=== PATIENT | female | born 1975 | race Caucasian/White ===

== ENCOUNTER 2019-06-26 13:31 | Emergency (ER) | payer OTHER ==
--- NOTE | 2019-06-26 14:34 | EDM.PDOC ---
ED HPI GENERAL MEDICAL PROBLEM - General Chief Complaint: Abdominal Pain Stated Complaint: FLANK PAIN Time Seen by Provider: 06/26/19 14:06 Source of Information: Reports: Patient, RN Notes Reviewed History Limitations: Reports: No Limitations - History of Present Illness INITIAL COMMENTS - FREE TEXT/NARRATIVE: Patient is a 43-year-old female who presents to the ED for the evaluation of left upper abdominal pain. The patient notes that she has been dealing with this pain for a few months now, she has had a CT, and ultrasound, with normal results. She has seen Dr. Holloway, and that she is scheduled for a nuclear med procedure at the end of June for further evaluation. Patient notes that the pain is similar to the pain she has been feeling. However this morning it intensified and was way worse than it normally has been. She does note she feels slightly nauseous, and did vomit a few times this morning. She did have one episode of a loose stool, but nothing she would consider watery. She states that the pain is constantly there, but comes and goes in waves. She says this is a sharp stabbing pain when it does hit her. She denies any abdominal surgeries, or fevers or chills, she states she did have a regular bowel movement this morning. She does note no chest pain or shortness of breath , no dysuria, however she feels she has frequency and urgency. She does have a history of kidney stones as well, but denies any obvious blood in the urine. Patient states she still can eat and drink okay, but has a decreased appetite due to the pain. Mother and brother have a inherited diseases side effects or blood, this is why Dr. Holloway was evaluating her spleen. Patient notes that it is hard to find a comfortable position, but she notes that nothing really makes this worse or better. She did take 3 Excedrin this morning for the pain, however it did not help much at all. Patient further denies any issues with her menses, she states however they are getting more heavy than they normally are, and that she has unprotected sex with her , and she is not worried about any sort of STD at this time. She further denies pain with sexual intercourse, or vaginal discharge. Left Upper Abdomen Pain Score (Numeric/FACES): 5 - Related Data Allergies Allergy/AdvReac Type Severity Reaction Status Date / Time No Known Allergies Allergy Verified 02/27/17 08:58 Home Meds: Home Meds traMADol [Ultram] 50 mg PO Q6H PRN #15 tab 06/26/19 [Rx] Past Medical History - Past Health History Medical/Surgical History: Denies Medical/Surgical History Social & Family History - Family History Hematologic: Reports: Other (See Below) Other Hematologic Family History: Mother and brother with hereditary spherocytosis - Tobacco Use Smoking Status *Q: Never Smoker - Caffeine Use Caffeine Use: Reports: Coffee, Soda - Recreational Drug Use Recreational Drug Use: No - Sexual History Sexual History: Reports: Sexually Active, Single Partner (), Vaginal [place] - Living Situation & Occupation Living situation: Reports: , with Spouse Occupation: Employed ED ROS GENERAL - Review of Systems Review Of Systems: See Below Constitutional: Denies: Fever, Chills Respiratory: Denies: Shortness of Breath Cardiovascular: Denies: Chest Pain GI/Abdominal: Reports: Abdominal Pain (Epigastric and LUQ), Decreased Appetite, Nausea, Vomiting. Denies: Black Stool, Bloody Stool, Constipation (normal BM this morning), Diarrhea : Reports: Flank Pain (Left flank), Frequency, Urgency. Denies: Dysuria Musculoskeletal: Denies: Back Pain Skin: Reports: No Symptoms ED EXAM, GI/ABD - Physical Exam Exam: See Below Exam Limited By: No Limitations General Appearance: Alert, WD/WN, No Apparent Distress Eyes: Bilateral: Normal Appearance Throat/Mouth: Normal Inspection, Normal Lips, Normal Teeth, Normal Gums, Normal Oropharynx, Normal Voice, No Airway Compromise Respiratory/Chest: No Respiratory Distress, Lungs Clear, Normal Breath Sounds, No Accessory Muscle Use, Chest Non-Tender Cardiovascular: Normal Peripheral Pulses, Regular Rate, Rhythm, No Murmur GI/Abdominal Exam: Normal Bowel Sounds, Soft, No Distention, No Mass, Tender ( LUQ and over epigastrium). No: Rigid, Rebound Extremities: Normal Inspection, Normal Capillary Refill Neurological: Alert, Oriented, Normal Cognition, No Motor/Sensory Deficits Psychiatric: Normal Affect, Normal Mood Skin Exam: Warm, Dry, Intact, Normal Color, No Rash Course - Vital Signs Last Recorded V/S: Last Vital Signs Temp 98.2 F 06/26/19 13:44 Pulse 75 06/26/19 13:44 Resp 20 06/26/19 13:44 BP 120/81 06/26/19 13:44 Pulse Ox 100 06/26/19 13:44 - Orders/Labs/Meds Labs: Laboratory Tests 06/26/19 06/26/19 06/26/19 Range/Units 14:33 14:33 15:10 WBC 6.78 (3.98-10.04) K/mm3 RBC 4.70 (3.98-5.22) M/mm3 Hgb 13.5 (11.2-15.7) gm/dl Hct 42.3 (34.1-44.9) % MCV 90.0 (79.4-94.8) fl MCH 28.7 (25.6-32.2) pg MCHC 31.9 L (32.2-35.5) g/dl RDW Std Deviation 42.0 (36.4-46.3) fL Plt Count 159 L (182-369) K/mm3 MPV 12.6 H (9.4-12.3) fl Neutrophils % (Manual) 72 H (40-60) % Band Neutrophils % 0 (0-10) % Lymphocytes % (Manual) 24 (20-40) % Atypical Lymphs % 0 % Monocytes % (Manual) 3 (2-10) % Eosinophils % (Manual) 1 (0.7-5.8) % Basophils % (Manual) 0 L (0.1-1.2) Platelet Estimate Adequate RBC Morph Comment Normal Sodium 138 (136-145) mEq/L Potassium 4.0 (3.5-5.1) mEq/L Chloride 104 (98-107) mEq/L Carbon Dioxide 29 (21-32) mEq/L Anion Gap 9.0 (5-15) BUN 12 (7-18) mg/dL Creatinine 0.8 (0.55-1.02) mg/dL Est Cr Clr Drug Dosing 76.55 mL/min Estimated GFR (MDRD) > 60 (>60) mL/min BUN/Creatinine Ratio 15.0 (14-18) Glucose 97 (74-106) mg/dL Calcium 9.2 (8.5-10.1) mg/dL Total Bilirubin 0.4 (0.2-1.0) mg/dL GGT 11 (5-55) U/L AST 14 L (15-37) U/L ALT 30 (14-59) U/L Alkaline Phosphatase 86 (46-116) U/L C-Reactive Protein 0.2 (<1.0) mg/dL Total Protein 7.8 (6.4-8.2) g/dl Albumin 3.9 (3.4-5.0) g/dl Globulin 3.9 gm/dL Albumin/Globulin Ratio 1.0 (1-2) Lipase 116 (73-393) U/L Urine Color Light yellow (Yellow) Urine Appearance Clear (Clear) Urine pH 6.5 (5.0-8.0) Ur Specific Mobile 1.010 (1.005-1.030) Urine Protein Negative (Negative) Urine Glucose (UA) Negative (Negative) Urine Ketones Negative (Negative) Urine Occult Blood Negative (Negative) Urine Nitrite Negative (Negative) Urine Bilirubin Negative (Negative) Urine Urobilinogen 0.2 (0.2-1.0) Ur Leukocyte Esterase Negative (Negative) Urine RBC 0-5 (0-5) /hpf Urine WBC 0-5 (0-5) /hpf Ur Squamous Epith Cells 0-5 (0-5) /hpf Urine Bacteria Occasional (FEW) /hpf Urine Mucus Not seen (FEW) /hpf - Re-Assessments/Exams Free Text/Narrative Re-Assessment/Exam: 06/26/19 14:36 Patient presents to the ED for the evaluation of left upper abdominal pain. She notes that this is quite similar to her regular pains she's been feeling however it became more severe this morning. I did order some lab evaluation, CBC, CMP, lipase, GGT, CRP and a UA for initial evaluation. Due to the patient recently having a normal CT scan at the end of March we will hold off on any sort or radiology imaging at this time. Patient's course is somewhat suspicious for kidney stone as she has a history of these. Will await lab values before we make decision on radiology exams. Patient is okay with this plan, she is not requesting anything for nausea/pain at this time. 06/26/19 15:24 In review of the patient's clinic notes, Dr. Holloway was contemplating hereditary spherocytosis, as her mother is a carrier was afflicted with this disease, this must be what her brother also has. He ordered a bone scan for further evaluation. 06/26/19 16:04 Labs are unequivocal for the visit today, there are no acute abnormalities identified. I did discuss this with the patient, and she states that she understands. At she's been dealing with this for quite some time. I did offer to do a abdomen x-ray for evaluation of constipation, but she would rather not have an x-ray done, and just be treated as such, we will order a bottle of magnesium citrate to take home. We'll also give her a few tablets of tramadol, she is taken this in the past for pain and it has provided pretty good pain relief. She states she will however try to take some ibuprofen before she has to take the tramadol. She will follow-up with her regular care physicians as needed. Departure - Departure Time of Disposition: 16:07 Disposition: Home, Self-Care 01 Condition: Fair Clinical Impression: Colicky LUQ abdominal pain - Discharge Information *PRESCRIPTION DRUG MONITORING PROGRAM REVIEWED*: Yes *COPY OF PRESCRIPTION DRUG MONITORING REPORT IN PATIENT TOMAS: No Instructions: Constipation, Adult, [id number] Referrals: Leticia Gaming PA-C [Primary Care Provider] - Forms: ED Department Discharge Additional Instructions: You were evaluated in the ER today regarding your left upper quadrant abdominal pain. Laboratory evaluation today demonstrates no focal abnormalities, there is no sign of bacterial infection, and there is no blood present in the urine to suggest a possible kidney stone. At this visit no radiology exams were done. You were given a bottle of magnesium citrate, please take one half bottle, wait a few hours if you did not have a rather large bowel movement, please repeat with the last half bottle. You may also want to try to take a stool softener, like MiraLAX to help keep your bowels regular. Your also given a prescription for tramadol, for which you've taken in the past, please take every 6 hours as needed for pain not relieved by ibuprofen alone. You may take 600 mg ibuprofen every 6 hours as needed for further pain relief. Do not exceed 3200 mg of ibuprofen in a 24 hour time span. Please follow up with your regular care provider, regarding your pending workup in the clinic. Please return to the ER at any time if her symptoms should change or worsen.
[2019-06-26] MEDS ORDERED: Magnesium Citrate Solution 296 ML Bottle PO ONE (16:05)
== END 2019-06-26 16:26 | disposition home or self-care (01) ==
LOC: JD.ED 13:31
DX: R10.12 Left upper quadrant pain (principal); R10.84 Generalized abdominal pain
CPT/HCPCS: 36415; 80053; 81001; 82977; 83690; 85007; 85027; 86140; 99284; A9270; 99282

== ENCOUNTER 2022-03-01 00:59 | Emergency (ER) | payer OTHER ==
[2022-03-01 01:54] LABS: ESTIMATED GFR 81 mL/min (>60)
[2022-03-01] MEDS ORDERED: Ketorolac 15 MG/ML SDV IVPUSH ONE (02:48)
== END 2022-03-01 04:33 | disposition home or self-care (01) ==
LOC: JD.ED 00:59
DX: M79.602 Pain in left arm (principal); I10 Essential (primary) hypertension; Z86.16 Personal history of COVID-19
CPT/HCPCS: 36415; 71045; 71045-26; 77063; 77063-26; 77067; 77067-26; 80053; 84484; 85025; 85610; 93005; 93010; 99283; 99284

== ENCOUNTER 2022-09-13 08:01 | Day surgery (SDC) | payer OTHER ==
[2022-09-13] MEDS ORDERED: Sodium Chloride 0.9% 10 ML Syringe FLUSH PRN (08:28)
[2022-09-13] MEDS ORDERED: Lidocaine 1%/Sod Bicarbonate in NS 8.4% 1 ML Syringe IDERM PRN (08:28)
[2022-09-13] MEDS ORDERED: Lactated Ringers 1,000 ML IV SCH (08:30)
[2022-09-13] MEDS ORDERED: Lidocaine 1% 4 ML ONE (08:56)
[2022-09-13] MEDS ORDERED: Midazolam 1 MG/ML 2 ML SDV ONE (08:56)
[2022-09-13] MEDS ORDERED: fentaNYL 100 MCG/2 ML SDV ONE (08:56)
[2022-09-13] MEDS ORDERED: Propofol 200 MG/20 ML SDV ONE ×2 (08:57→09:40)
[2022-09-13] MEDS ORDERED: Lactated Ringers 1,000 ML ONE (08:57)
[2022-09-13] MEDS ORDERED: Sodium Chloride 0.9% 10 ML Syringe FLUSH SCH (09:00)
== END 2022-09-13 10:25 | disposition home or self-care (01) ==
LOC: JD.SDS 08:01
PROVIDERS: ATTEND Surgery
DX: K29.50 Unspecified chronic gastritis without bleeding (principal); F41.9 Anxiety disorder, unspecified; K21.9 Gastro-esophageal reflux disease without esophagitis; G43.709 Chronic migraine without aura, not intractable, without status migrainosus; I10 Essential (primary) hypertension; E04.1 Nontoxic single thyroid nodule; D69.59 Other secondary thrombocytopenia; D73.1 Hypersplenism; G47.33 Obstructive sleep apnea (adult) (pediatric); Z79.899 Other long term (current) drug therapy; Z98.890 Other specified postprocedural states; Z87.442 Personal history of urinary calculi; Z91.041 Radiographic dye allergy status; Z86.16 Personal history of COVID-19
CPT/HCPCS: 43239; 45380; 81025; J2250; J2704; J3010; J7120; 00813; J3490